=== PATIENT | female | born 2000 | race Two or more races ===

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

== ENCOUNTER 2022-04-09 12:34 | Emergency (ER) | payer OTHER ==
[~2022-04-09] VITALS: Ht 160 cm; Wt 75.0 kg
[~2022-04-09 12:34] MED LIST: CEFU500T41 MT; MAG-55 MT; ONDA4TAB5 MT
[2022-04-09] MEDS ORDERED: KETOROLAC 30MG/ML VIAL IV STA (12:47)
[2022-04-09] MEDS ORDERED: ONDANSETRON HCL 4MG/2ML INJ IV STA (12:47)
[2022-04-09] MEDS ORDERED: SODIUM CHLORIDE 0.9% 1,000 ML IV ONE (13:00)
[2022-04-09 13:17] LABS: HEMATOCRIT. 42.1 % (36.0-48.0); HEMOGLOBIN. 14.3 g/dL (12.0-16.0); MEAN CORPUSCULAR HEMOGLOBIN 28.9 pg (28.0-32.0); MEAN CORPUSCULAR VOLUME 84.8 fL (81.0-99.0); MEAN PLATELET VOLUME 8.9 fl (7.4-10.4); PLATELET 381 x1000/uL (130-400); RED BLOOD CELL COUNT 4.97 mill/uL (4.2-5.4); RED CELL DISTRIBUTION WIDTH 12.5 % (11.6-14.6)
[2022-04-09 13:21] LABS: CHLORIDE 104 mEq/L (98-107)
[2022-04-09 13:31] LABS: HCG SCREEN NEGATIVE
[2022-04-09 13:55] LABS: PLATELET ESTIMATE NORMAL
[2022-04-09 15:27] LABS: CLARITY URINE CLEAR (CLEAR); COLOR URINE DARK YELLOW (YELLOW); KETONES URINE 4+ (NEGATIVE); LEUKOCYTE ESTERASE URINE TRACE (NEGATIVE); NITRITE URINE NEGATIVE (NEGATIVE); OCCULT BLOOD URINE TRACE (NEGATIVE); PH URINE 7.5 (4.5-8.0); PROTEIN URINE 2+ (NEGATIVE)
[2022-04-09] MEDS ORDERED: ONDANSETRON HCL 4MG/2ML INJ IV NR (17:00)
[2022-04-09] MEDS ORDERED: KETOROLAC 30MG/ML VIAL IV NR (17:00)
[2022-04-09] MEDS ORDERED: ONDA4TAB5 MT (17:56)
[2022-04-09] MEDS ORDERED: PROT40 MT (17:56)
[2022-04-09] MEDS ORDERED: PANTOPRAZOLE 40MG DR TABLET PO ONE (18:00)
[2022-04-09] MEDS ORDERED: VISCOUS LIDOCAINE 2% 15 ML UDC MM ONE (18:00)
[2022-04-09] MEDS ORDERED: MAGNESIUM/ALUMINUM HYDROXIDE/SIMETHICONE 30ML UDC PO ONE (18:00)
[2022-04-09 18:25] VITALS: BP 118/62
== END 2022-04-09 18:45 | disposition home or self-care (01) ==
LOC: ER 12:34
DX: R10.13 Epigastric pain (principal); Z13.9 Encounter for screening, unspecified; Z98.890 Other specified postprocedural states
CPT/HCPCS: 36415; 76705; 80053; 81003; 82962; 83690; 84703; 85025; 96374; 96375; 99284; J1885; J2405; J7030

== ENCOUNTER 2023-05-20 10:26 | Emergency (ER) | payer OTHER ==
[~2023-05-20] VITALS: Ht 157.5 cm; Wt 81.8 kg
[~2023-05-20 10:26] MED LIST changes: +PROT40 MT
[2023-05-20 11:11] VITALS: BP 130/79; PULSE 95; RESP 16; TEMP 100; O2SAT 96
[2023-05-20] MEDS ORDERED: ONDA4TAB11 PO ×3 (11:40→11:41)
[2023-05-20] MEDS ORDERED: SUCR1TAB MT (11:40)
== END 2023-05-20 12:08 | disposition home or self-care (01) ==
LOC: ER 10:26
DX: K29.70 Gastritis, unspecified, without bleeding (principal)
CPT/HCPCS: 99281